=== PATIENT | male | born 1985 | race Caucasian/White ===

== ENCOUNTER 2016-11-11 05:10 | Day surgery (SDC) | payer OTHER ==
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
[2016-11-11] MEDS ORDERED: LR 1,000 ML ONE ×2 (05:47→09:33)
[2016-11-11 06:16] LABS: HEMATOCRIT 40.4 % (42.0-52.0); HEMOGLOBIN 13.9 g/dL (14.0-18.0); MCH 27.6 PG (27-31); MCHC 34.4 g/dL (33-37); MCV 80.2 FL (81-99); MPV 9.6 FL (7.4-10.4); RBC 5.04 XMIL (4.7-6.1)
[2016-11-11 06:30] LABS: AGAP 11; BUN 8 mg/dL (8-22); CALCIUM 9.5 mg/dL (8.8-10.2); CHLORIDE 106 mmol/L (98-107); COSMO 283; SODIUM 143 mmol/L (136-145); TCO2 26 mmol/L (25-35)
[2016-11-11] MEDS ORDERED: XYLOCAINE 1%/EPI 1:100,000 ONE (06:37)
[2016-11-11] MEDS ORDERED: NEO-SYNEPHRINE 1% NASAL SPRAY ONE (06:51)
[2016-11-11] MEDS ORDERED: KEFZOL 1 GM/D5W 50 ML ONE (07:01)
[2016-11-11] MEDS ORDERED: DECADRON ONE (07:01)
[2016-11-11] MEDS: DILAUDID ONE ×8 (09:21→10:16)
[2016-11-11] MEDS ORDERED: FENTANYL ONE ×2 (09:30)
[2016-11-11] MEDS ORDERED: DIPRIVAN 1% ONE (09:30)
[2016-11-11] MEDS ORDERED: ZOFRAN ONE (09:33)
[2016-11-11] MEDS ORDERED: ROBINUL ONE (09:33)
[2016-11-11] MEDS ORDERED: ZEMURON ONE (09:33)
[2016-11-11] MEDS ORDERED: NEOSTIGMINE ONE (09:33)
[2016-11-11] MEDS ORDERED: XYLOCAINE-MPF 2% ONE (09:33)
[2016-11-11] MEDS ORDERED: XYLOCAINE 2% JELLY ONE (09:33)
[2016-11-11] MEDS ORDERED: QUELICIN (DOSE) ONE (09:33)
[2016-11-11] MEDS ORDERED: TORADOL ONE (11:00)
[2016-11-11 11:32] VITALS: BP 153/84
--- NOTE | 2016-11-11 18:02 | OPERATIVE NOTE ---
PROCEDURE DATE: 11/11/2016 PREOP DIAGNOSES: 1. Left mandibular body fracture. 2. Comminuted or stellate right mandibular ramus vertical fracture. POSTOP DIAGNOSIS: 1. Left mandibular body fracture. 2. Comminuted or stellate right mandibular ramus vertical fracture. PROCEDURE: 1. Open reduction, internal fixation of left mandibular body fracture. 2. Open reduction, internal fixation of right mandibular stellate comminuted vertical mandibular ramus fracture. SURGEON: Seb Aviles MD. ANESTHESIA: General endotracheal. ESTIMATED BLOOD LOSS: Less than 25 mL. FLUIDS: 1500 mL lactated Ringer's. COMPLICATIONS: None. PROCEDURE: The patient was identified in same-day surgery, taken to the operating room where he was placed in supine position. After IV access was reassured the patient was induced under general anesthesia. The patient was then prepped and draped in usual sterile fashion. Attention was turned to the oral cavity where 10 mL of 1% Xylocaine with 1:100,000 epinephrine was infiltrated locally along the fractured and had also medial into the ramus for mandibular blocks. The oral cavity was then thoroughly cleansed using Betadine and sterile saline. The throat pack was placed prior to this and then was removed and a new throat pack was placed. This throat pack was removed at the end of the procedure. Inspection of the dentition showed partially edentulous with many nonrestorable carious teeth. Arch bars were then fashioned to the upper and lower dentition using 24-gauge wire. The occlusion was placed in intermaxillary fixation. Attention was turned to the left mandibular body fracture where a Bovie used to make incision superior to the neurovascular bundle, access through omental foramen. The tissue was dissected inferior identifying the mental nerve and isolating it. The fractures were then identified, dissection down inferior to the border of the mandible. A small fragment which was apparent to the inferior border of the mandible was removed and it was too small to be added into the fracture. The surgical site was copiously irrigated. The fracture site was manipulated to a nice reduction. A very nice tight reduction superior with a somewhat open inferior spot due to the fracture which was removed. Two 2 mm 4-hole Synthes plates were fashioned 1 above, 1 below the neurovascular bundle. Holes were drilled using [employer] handpiece and 2 mm screws were used to rigidly hold the plate in place. Nice reduction was noted. The surgical site was copiously irrigated. The mucosa was closed in running fashion using 4-0 gut suture. Attention was turned to the right mandibular fracture where the Bovie was used to make an incision along the ascending ramus down and lateral to the right mandibular 1st molar. Periosteal elevator was then used to reflect the mucosa and periosteum off the lateral aspect of the ramus. Dissection was taken up above the sigmoid notch and exposing the angle of the mandible. The fracture then was manipulated and found to be somewhat comminuted and with the fracture in a stellate fashion. A single 2 mm 4-hole plate was then fashioned horizontal across this to rigidly hold the bulk of the fractures in place. Nice reduction was actually noted and due to the nature of the fracture it was chose to leave the patient in intermaxillary fixation. The surgical site was copiously irrigated and the mucosa closed in a running fashion using 4-0 Vicryl suture. The throat pack was then removed. Intermaxillary fixation was reinforced. An NG tube was placed through the nose down stomach and stomach suctioned. A cushion type head dressing was placed. The patient tolerated the procedure without any complication, was transferred to recovery in satisfactory condition.
== END 2016-11-11 12:00 ==
LOC: OR 05:10
PROVIDERS: ATTEND Dentist Oral and Maxillofacial Surgery
DX: S02.602A Fracture of unspecified part of body of left mandible, initial encounter for closed fracture (principal); S02.641A Fracture of ramus of right mandible, initial encounter for closed fracture; K02.9 Dental caries, unspecified; I10 Essential (primary) hypertension
CPT/HCPCS: 80048; 85027; 85730; J0330; J0690; J1170; J1885; J2405; J3010; J7120; J2710